=== PATIENT | male | born 1975 | race Caucasian/White ===

== ENCOUNTER 2024-10-02 13:59 | Outpatient (CLI) | payer OTHER, SELFPAY ==
--- OUTSIDE RECORDS SUMMARY | 2024-10-02 14:03 | XMS_ITS | Continuity of Care Document ---
Author Organization [facility] Address [address] [place] [address] Assessment No assessment recorded. Plan of Treatment Reminders Order Date Submit Date Provider Last Modified By Organization Details Last Modified Time Details Appointments None recorded. Lab None recorded. Referral None recorded. Procedures None recorded. Surgeries None recorded. Imaging MRI, hip, w/o contrast 2024 025 [facility] ([facility]), [address], [place], [address], 5 11:50:20 Medication Orders cyclobenzap rine 5 mg tablet 2024 025 [facility] [id number], [address] [place] [address] , [place], [address], 5 15:19:55 lidocaine 4 % topical patch 2024 025 [facility] [id number], [address] [place] [address] , [place], [address], 5 15:19:57 Salonpas (lidocaine) 4 % topical patch 2024 025 [facility] [id number], [address] [place] [address] , [place], [address], 5 15:19:52 Patient TargetsNo targets recorded. Patient InstructionsNo instructions recorded. Reason for Referral None Reported. Problems No Known Problems Medical Equipment None Reported. Allergies No known drug allergies Medications Name Sig Start Date Stop Date Status Note LastModified by Organization Details LastModified Time naproxen 375 mg tablet Take 1 tablet twice a day by oral route as needed for 5 days. 2024 active Not Available Not Available Not Avai lable cyclobenzaprine 5 mg tablet Take 1 tablet twice a day by oral route as needed for 3 days, for pain. 2024 active Not Available Not Available Not Avai lable Salonpas (lidocaine) 4 % topical patch Apply 1 patch every day by topical route. 2024 active Not Available Not Available Not Avai lable Vitals Date Recorded Body weight Body mass index (BMI) Body height Heart rate Oxygen saturation Oxygen saturation in Arterial blood by Pulse oximetry Respiratory rate Pain severity - 0-10 verbal numeric rating [Score] - Reported Systolic And Diastolic Provider Name and Address Organization Details Last Updated DateTime 287224. 06 g 49.4 kg/m2 187.96 cm 62 /min 96 % 96 % 18 /min 5 132/80 mm[Hg] Vanesa Green [place] - [facility] 14:44:34 Social History Question Answer Notes LastModified by [employer] ion Details LastModified Time Tobacco Smoking Status Current Some Day Smoker Vanesa [place] null, [place] - [facility] 09/25/2024 14:31:30 Do You Have An Advance Directive? No Information not available 09/25/2024 Is Blood Transfusion Acceptable In An Emergency? Yes Information not available 09/25/2024 What Is Your Level Of Caffeine Consumption? Occasional Information not available 09/25/2024 How Much Tobacco Do You Chew? None Information not available 09/25/2024 In The 14 Days Before Symptom Onset, Have You Had Close Contact With A Laboratory-confir med COVID-19 While That Case Was Ill? No Information not available 09/25/2024 In The 14 Days Before Symptom Onset, Have You Had Close Contact With A Person Who Is Under Investigation For COVID-19 While That Person Was Ill? No Information not available 09/25/2024 Have You Been To An Area Known To Be High Risk For COVID-19? No Information not available 09/25/2024 Are You Deaf Or Do You Have Serious Difficulty Hearing? No Information not available 09/25/2024 Which Illicit Or Recreational Drugs Have You Used? Pot Information not available 09/25/2024 Have You Processed Blood Or Body Fluids From An Ebola Virus Disease Patient Without Appropriate PPE? No Information not available 09/25/2024 Do You Reside In Or Have You Traveled To An Area Where Ebola Virus Transmission Is Active? No Information not available 09/25/2024 What Is The Highest Grade Or Level Of School You Have Completed Or The Highest Degree You Have Received? [id number] Information not available 09/25/2024 Have You Recently Or Are You Planning To Travel To An Area With Zika Virus? No Information not available 09/25/2024 How Many Years Have You Used Illicit Or Recreational Drugs? 10 Information not available 09/25/2024 What Was The Date Of Your Most Recent Tobacco Screening? 09/25/2024 Information not available 09/25/2024 Do You Use Protection Against STDs? Always Information not available 09/25/2024 What Is Your Relationship Status? Information not available 09/25/2024 Do You Use Your Seat Belt Or Car Seat Routinely? Yes Information not available 09/25/2024 Are You Sexually Active? No Information not available 09/25/2024 Do You Have Smoke And Carbon Monoxide Detectors In Your Home? Yes Information not available 09/25/2024 At What Age Did You Start Smoking Tobacco? 32 Information not available 09/25/2024 Are You Passively Exposed To Smoke? No Information no t available 09/25/2024 How Much Tobacco Do You Smoke? 1 PPW Information not available 09/25/2024 Do You Use Sunscreen Routinely? No Information not available 09/25/2024 How Many Years Have You Smoked Tobacco? 10 Information not available 09/25/2024 Which Type Of Protection Is Used? Condom Information not available 09/25/2024 Sex: Male Functional Status Question Answer Note LastModified by Organizat ion Details LastModified Time Do you use any illicit or recreational drugs? Yes Information not available 09/25/2024 What is your level of alcohol consumption? None Information not available 09/25/2024 Do you or have you ever used smokeless tobacco? [id number] Information not available 09/25/2024 Are you currently employed? No Information not available 09/25/2024 Are you able to care for yourself independently? Yes Information not available 09/25/2024 Do you or have you ever used e-cigarettes or vape? Never used electronic cigarettes Information not available 09/25/2024 What is your exercise level? None Information not available 09/25/2024 Mental Status Question Answer Note LastModified by Organization D etails LastModified Time Do you feel stressed (tense, restless, nervous, or anxious, or unable to sleep at night)? [id number] Information not available 09/25/2024 Family History Relationship Description Onset Age of this Age Resolved Age Notes LastModified by Organization Details LastModified Time Mother Osteoporosis calciu m defici et cbuckler Not available 09/25/2024 14:45:42 Mother Deep venous thrombosis cbuckler Not available 09/25 14:46:23 Medical History Condition Response Pancreatitis N Coronary Artery Disease N Other N Gout N Atrial Fibrillation N congenital heart disease N Blood Diseases N Kidney Stones N Hyperthyroidism N Blood Transfusion N Rheumatoid arthritis N Erectile Dysfunction N amputation N Colonoscopy N Skin Lesions N COPD N Depression N Pneumonia N Incontinence N Murmur N Edema N Alzheimer's Disease N Migraine Headaches N POTS- Postural Orthostatic Tachycardia N Tobacco Abuse N Anxiety Disorder N Hemorrhoids N Muscle, Joint, or Bone Problems N Obesity N Vision or Eye Problems N Arthritis N Restless Leg Syndrome N Polyps N Infertility N Mental Disorder N Carpal Tunnel N Acid Reflux (GERD) N Cancer N Varicosities N Stroke N Tendonitis N Crohn's Disease N Hypercholesterolemia N Skin Cancer N Brett-Danlos N Headaches N Fibromyalgia N Anal Fissure N Irritable Bowel Syndrome N Kidney Disease N Heart Problems N Ear or Hearing Problems N Hospitalizations N Gallstones N Kidney or Bladder Problems N Goiter N Acne N Skin Problems N Eating Disorder N Santiago's Esophagus N Hypertriglyceridemia N MRSA exposure N Constipation N Embolism N Vitamin B12 Deficiency N Deviated Septum N Tuberculosis N AIDS/HIV N Myocardial Infarction N Asthma N Mitral Valve Disorders N Vertigo N Hepatitis N Thyroid Cancer N Neuropathy N Pulmonary Embolism N COVID 19 N History of DVT N Herniated Disc N Chronic Ear Infections N Chicken Pox N Autism Spectrum Disorder (ASD) N Von Willebrands Disease N Thrombophilias N Breast Cancer N Hernia N Plantar Fasciitis N Hospital Admission Other Than N Lung Disease N Hypothyroidism N Defects or Inherited Disease N Developmental or Behavioral Disorders N Difficulty Swallowing N Ovarian Cyst N Anesthesia Complications N Testosterone Deficiency N Meniere's disease N Head Injury/Concussion N Interstitial Cystitis N Congenital Anomalies N Hypoglycemia N Blood clot N Vitamin D Deficiency N Cellulitis N Endometriosis N Fracture N Bladder or Kidney Problems N Colorectal Cancer N Liver Disease N Panic Disorder N Schizophrenia N Concussion N Spina Bifida N Allergies/Hayfever N Osteoarthritis N Parkinson's Disease N Disc Protrusion N STI N Esophagitis N Angina N Thyroid Problems N GI Problems N ADD/ADHD N Anemia N Multiple Sclerosis N Abnormal PAP N Lumbago N Mental Illness N Psychiatric Illness N Diabetes N Ovarian Cancer N Bedwetting N Degenerative Disc Disease N Seizures/Epilepsy N Congestive Heart Failure (CHF) N Hyperlipidemia N Syncope N Insomnia N Eczema N Abuse/Domestic Violence N Attention Deficient Disorder N Diverticulitis N Dementia N Ulcerative colitis N Cerebrovascular Disease N Depression N Guillain-[place] N Sleep Apnea N Aneurysm N Heart Disease N Bronchitis N Suicidal Ideation N Pre-Eclampsia N Hypertension N Osteoporosis N Past Encounters Encounter ID Performer Location Encounter Start Date Encounter Closed Date Diagnosis/Indication Diagnosis SNOMED-CT Code Diagnosis ICD10 Code Diagnosis Note [id number] Timmy Dixon APRN [address] [address] 09/25/2024 14:21:09 09/25/2024 15:13:36 Pain of hip region 04281112 M25.552 tylenol or motrin as neededlido ines patchmuscl e relaxerrot ate heat and iceif worsen or no improvemen t returnmri to r/o fracture, ligament or muscle tear Health Concerns Section Related Observation LastModified by Organization Detai ls LastModified Time None Recorded Concern Status LastModified by Organization Details LastModified Time None Recorded Payers Encounter Date Sequence Insurance Name Policy Number Policy Zhang Covered Member ID Zhang Member ID Guarantor Name 09/25/2024 [place] [employer] [facility] - FFS/TRADITIO BRAYAN Rodríguez [id number] Anderson Rodríguez
--- OUTSIDE RECORDS SUMMARY | 2024-10-02 14:03 | XMS_ITS | Data Portability ---
Author Organization [facility] Address [address] [place] [address] Assessment No assessment recorded. Plan of Treatment Reminders Order Date Submit Date Provider Last Modified By Organization Details Last Modified Time Details Appointments None recorded. Lab None recorded. Referral None recorded. Procedures None recorded. Surgeries None recorded. Imaging MRI, hip, w/o contrast 2024 025 [facility] ([facility]), [address], [place], [address], 5 11:50:20 Medication Orders cyclobenzap rine [address] tablet [address] [facility] [id number], [address] [facility] , [place], [address], 5 15:19:55 lidocaine 4 % topical patch [address] [facility] [id number], [address] [place] [address] , [place], [address], 5 15:19:57 Salonpas (lidocaine) 4 % topical patch 2024 025 [facility] [id number], [address] [place] [address] , [place], [address], 5 15:19:52 Patient TargetsNo targets recorded. Patient [...] and Address Organization Details Last Updated DateTime 518314. 06 g 49.4 kg/m2 187.96 cm 62 /min 96 % 96 % 18 /min 5 132/80 mm[Hg] Vanesa Green [place] - [facility] 14:44:34 Social History Question Answer Notes LastModified by [employer] ion Details LastModified Time Tobacco Smoking Status [...] Or The Highest Degree You Have Received? [id number] Information not available 09/25/2024 Have You Recently [...] or have you ever used smokeless tobacco? [id number] Information not available 09/25/2024 Are you currently [...] anxious, or unable to sleep at night)? [id number] Information not available 09/25/2024 Family History Relationship [...] colitis N Cerebrovascular Disease N Depression N Guillain-[place] N Sleep Apnea N Aneurysm N Heart Disease N Bronchitis N Suicidal Ideation N Pre-Eclampsia N Hypertension N Osteoporosis N Past Encounters Encounter ID Performer Location Encounter Start Date Encounter Closed Date Diagnosis/Indication Diagnosis SNOMED-CT Code Diagnosis ICD10 Code Diagnosis Note [id number] Timmy Dixon APRN [address] [address] 09/25/2024 14:21:09 09/25/2024 15:13:36 Pain of hip region 04307833 M25.552 tylenol or motrin as neededlido ines patchmuscl e relaxerrot ate heat and iceif worsen or no improvemen t returnmri to r/o fracture, ligament or muscle tear Health Concerns Section Related Observation LastModified by Organization Detai ls LastModified Time None Recorded Concern Status LastModified by Organization Details LastModified Time None Recorded Advance Directives Directive N: Payers Insurance Date Sequence Insurance Name Policy Number Policy Zhang Covered Member ID Zhang Member ID Guarantor Name 09/25/2024 1 [facility] [facility] (MEDICAID HMO) Anderson Rodríguez [id number] Anderson Rodríguez 09/26/2024 MEDICAID-[facility] - FFS/TRADITIO NAL Anderson Rodríguez [id number] Anderson Rodríguez 09/25/2024 2 MEDICA[employer]-[facility] - FFS/TRADITIO NAL Anderson Rodríguez [id number] Anderson Rodríguez
--- NOTE | 2024-10-02 14:06 | MR_ITS ---
FINAL REPORT CLINICAL HISTORY: LT HIP PAIN after mower accident COMPARISON: None FINDINGS: Multiplanar and multisequence imaging of the left hip were obtained without contrast. The study is limited by artifact secondary to patient body habitus. Bone marrow signal intensity appears preserved. There is no acute fracture, contusion or pathologic marrow replacement. There is mild degenerative disease of the hips bilaterally, without evidence of AVN. The labrum is difficult to evaluate, however no convincing labral tear is identified. The ligamentum teres appears intact. Signal intensity within the muscular structure is within normal limits. Remaining soft tissues are unremarkable. No joint effusion is present. IMPRESSION: No convincing acute osseous abnormality. 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 Reviewed, Interpreted and Dictated by Yoana Capellan MD Transcribed by Brianna Muñoz Authenticated and [facility]
== END 2024-10-02 23:59 | disposition home or self-care (01) ==
LOC: RAD 14:01
PROVIDERS: PCP Nurse Practitioner Family; Visit Provider Nurse Practitioner Family
DX: M16.0 Bilateral primary osteoarthritis of hip (principal)
CPT/HCPCS: 73721